=== PATIENT | male | born 1975 | race Two or more races ===

== ENCOUNTER 2018-05-20 08:15 | Day surgery (SDC) | payer OTHER ==
[2018-05-20] VITALS (7 sets, daily range): BP systolic 127–148; BP diastolic 80–93
[~2018-05-20] VITALS: Ht 198.1 cm; Wt 127.0 kg
--- NOTE | 2018-05-20 06:55 | Anethesia Preoperative Eval ---
Anesthesia Pre-op PMH/ROS General Date of Evaluation: May 20, 2018 Time of Evaluation: 06:53 Anesthesiologist: randall ASA Score: ASA 2 Mallampati Score Class I : Soft palate, uvula, fauces, pillars visible Class II: Soft palate, uvula, fauces visible Class III: Soft palate, base of uvula visible Class IV: Only hard plate visible Mallampati Classification: Class II Surgeon: perry Diagnosis: abdominal pain Surgical Procedure: egd/colonoscopy Anesthesia History: none Social History: current smoker Family History: no anesthesia problems Allergies: Coded Allergies: No Known Allergies (Unverified , 05/19/18) Medications: see eMAR Patient NPO?: Yes Past Medical History Gastrointestinal/Genitourinary: Reports: GERD HEENT: Reports: other - decreased visual acuity Anesthesia Pre-op Phys. Exam Physician Exam Last Vital Signs Date Time Temp Pulse Resp B/P (MAP) Pulse Ox O2 Delivery O2 Flow Rate FiO2 05/20/18 09:31 98.5 66 20 148/93 98 Room Air Constitutional: NAD Neurologic: CN 2-12 intact Cardiovascular: RRR Respiratory: CTA Gastrointestinal: S/NT/ND Airway Exam Mallampati Score: Class II MO: full Neck: flexible TMD: 2fb ROM: full Anesthesia Pre-op A/P Risk Assessment & Plan Assessment: asa2 Plan: mac Status Change Before Surgery: No Pre-Antibiotics Drug: Tarah Winters MD May 20, 2018 06:55
[~2018-05-20 08:15] MED LIST: Atropine Inj 1mg/10ml Syr IV PRN; DiphenhydrAMINE 50mg/ml Inj IVP PRN; IBUPROFEN200 MG ORAL; LR 1000ml 1,000 ML IVLG SCH; Midazolam 2mg/2ml Inj IVP PRN; NUTRITIONAL DR420 GM PO; fentaNYL 100 mcg/2 mL IV PRN
[2018-05-20] MEDS ORDERED: LR 1000ml ONE (09:30)
[2018-05-20] MEDS ORDERED: Propofol 200mg/20ml IV ONE (09:30)
[2018-05-20] MEDS ORDERED: Lidocaine 1% MPF 10mg/ml 5ml ONE (09:30)
--- NOTE | 2018-05-20 09:31 | Short Stay Surgery H&P ---
History of Present Illness History of Present Illness Chief Complaint Abdominal pains/GERDs/rectal bleeding HPI Jin Burdick is a 42 year old male who was admitted on for Abdominal Pain/GERDS/rectal bleeding, Patient History Allergies: Coded Allergies: No Known Allergies (Unverified , 05/19/18) PAST MEDICAL HISTORY: (1) H/O arthroscopic knee surgery Medication History Scheduled Ibuprofen (Ibuprofen*), 800 MG ORAL Q8H, (Reported) Protein Supplement (Nutritional Drink Mix), 420 GM PO DAILY, (Reported) Review of Systems Cardiovascular: Reports: no symptoms Respiratory: Reports: no symptoms Skeletal: Reports: trauma Gastrointestinal: Reports: gastro esophageal reflux disease Genitourinary: Reports: no symptoms Neurologic: Reports: no symptoms Endocrine: Reports: no symptoms Hematologic: Reports: no symptoms Physical Exam Skin: normal HENT: normal Heart: normal Lungs: normal Abdomen: abnormal Extremities: normal Genitourinary: normal Plan Plan of Care Upper and lower GI endoscopies. Preop Interventions None. Attestation Are the patient's medical conditions optimized for surgery? Attestation Response: yes José Miguel Ocaiso MD May 20, 2018 09:30
--- NOTE | 2018-05-20 09:32 | Pre-Procedure Note/Attestation ---
Pre-Procedure Note/Attestation Complete Prior to Procedure Planned Procedure: left Procedure Narrative: Examination of the upper and the lower GI tract via endoscopy Indications for Procedure Pre-Operative Diagnosis: R/O Gastritis/peptic ulcer/hemorrhoids/colitis/tumor in colon Attestation I attest that I discussed the nature of the procedure; its benefits; risks and complications; and alternatives (and the risks and benefits of such alternatives ), prior to the procedure, with the patient (or the patient's legal contact center representative). I attest that, if there was a reasonable possibility of needing a blood transfusion, the patient (or the patient's legal contact center representative) was given the [place] [facility] [employer] [facility] standardized written summary, pursuant to the [place] Blood Safety Act ([place] Health and Safety Code # 1645, as amended). I attest that I re-evaluated the patient just prior to the surgery and that there has been no change in the patient's H&P, except as documented below: José Miguel Ocasio MD May 20, 2018 09:32
[2018-05-20] MEDS ORDERED: CYCLOBENZAPRINE10 MG ORAL (09:36)
--- NOTE | 2018-05-20 10:10 | Endoscopy Procedure Note ---
Endoscopy Procedure Note General Indication for Procedure: Abdominal pains/GERDs/rectal bleeding Procedures Performed: EGD - Completely normal Upper GI endoscopy. Biopsy taken per random from gastric body., colonoscopy - Minimal internal hemorrhoids/non friable, otherwise completely normal total colonoscopy upto the base of the cecum. Pt Tolerated Procedure Well: Yes Estimated Blood Loss: none Anesthesia Anesthesiologist: Dr. Sanchez Anesthesia: moderate sedation Medications Medication Given: see anesthesia record Inserted Devices Implant(s) used?: No Quality Quality of Bowel Preparation: Excellent Did scope reach the cecum?: Yes Was there any complications?: No GI Core Measures 50 yrs or older w/o bx or poly: No 10yrs. F/U not recommended: Yes 10 yrs. F/U needed: Yes 18 years or older w/prev. colo: No Med reason:<3 yrs.: System Reason:<3 yrs.: José Miguel Ocasio MD May 20, 2018 10:10
--- NOTE | 2018-05-20 10:11 | Discharge Instructions ---
Discharge Instructions Discharge Instructions Follow up with: See the doctor after 2 weeks in the office For Congestive Heart Failure Reminder Report to your physician any weight gain of 5 pounds or more in one week. José Miguel Ocasio MD May 20, 2018 10:11
--- NOTE | 2018-05-20 10:52 | Immediate Post-Op Evaluation ---
Immediate Post-Op Evalulation Immediate Post-Op Evalulation Procedure: egd/colonoscopy/bx Date of Evaluation: May 20, 2018 Time of Evaluation: 10:31 IV Fluids: 400ml lr Blood Products: none Estimated Blood Loss: negligible Blood Pressure Systolic: 145 Blood Pressure Diastolic: 88 Pulse Rate: 88 Respiratory Rate: 18 O2 Sat by Pulse Oximetry: 97 Temperature (Fahrenheit): 97.3 Pain Score (1-10): 0 Nausea: No Vomiting: No Complications none Patient Status: awake, reacts, patent Hydration Status: adequate Drug: Tarah Winters MD May 20, 2018 10:52
--- NOTE | 2018-05-20 10:53 | 48 Hour Post Anesthesia Eval ---
Post Anesthesia Evaluation Procedure: egd/colonoscopy/bx Date of Evaluation: May 20, 2018 Time of Evaluation: 10:33 Blood Pressure Systolic: 137 0: 88 Pulse Rate: 73 Respiratory Rate: 18 Temperature (Fahrenheit): 97.3 O2 Sat by Pulse Oximetry: 98 Airway: patent Nausea: No Vomiting: No Pain Intensity: 0 Hydration Status: adequate Cardiopulmonary Status: stable Mental Status/LOC: patient returned to baseline Post-Anesthesia Complications: none Follow-up care needed: N/A Tarah Rizo MD May 20, 2018 10:53
--- NOTE | 2018-05-20 15:30 | Pre-op HX & Phy Repo 2 SIG ---
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 He also reports that his pain radiates towards the chest area, which is very mild. He reported that he had never been in the past received any acid suppressor such as proton pump inhibitor or H2 blockers. At this time, the applicant reports that he has mild discomfort over his upper part of the stomach with minimal amount of heartburn which is basically controlled with a diet at this time. He also reported to me that during his work, he has gradually gained approximately 30 pounds. The other problem that he has been reporting is that he has been experiencing the occasional rectal bleeding. The diagnosis of which still remains unclear and therefore the patient has been referred to us for undergoing upper and lower GI endoscopic examination in terms of finding what the causes of his gastrointestinal complaints are about. 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 He reported to me that he never received any endoscopic procedure in the gastrointestinal tract, however. PAST MEDICAL HISTORY: Basically nonsignificant. He denies having any hypertension, high cholesterol, arthritis, diabetes, etc. PAST SURGICAL HISTORY: He has received arthroscopic procedure on knees related to his work accident, etc. ALLERGIES: None significant. FAMILY HISTORY: None significant. There is no family . HABITS: The applicant denies drinking alcohol; however, for the past 5 years, he has been smoking cigarettes. MEDICATIONS: Currently ibuprofen and [place]. REVIEW OF SYSTEMS: Basically is nonsignificant as he denies any headaches or dizziness, history of fall or syncope. No history of chest pain. No history of cough, etc. No urinary problems. PHYSICAL EXAMINATION: GENERAL: At this time reveals alert and well-oriented gentleman, does not seem to be in acute distress. VITAL SIGNS: Stable. HEENT: Normocephalic. Pupils equal and responsive to light and accommodation. No visible jaundice. Buccal cavity, tongue midline, well hydrated. No ulcers. NECK: Supple. No JVD or thyromegaly. CHEST: Clear to auscultation and percussion. No rales or rhonchi. HEART: S1 and S2 normal. Regular rhythm. No gallops or murmur. ABDOMEN: Significantly obese, but there is minimal tenderness over the upper part of the abdomen but is very nonspecific and not significant. There is no hepatosplenomegaly. No palpable mass noted. EXTREMITIES: No pretibial edema, cyanosis, or clubbing. CENTRAL NERVOUS SYSTEM: Grossly normal. PRELIMINARY PREOPERATIVE DIAGNOSES: 1. Epigastric pain with gastroesophageal acid reflux, rule out NSAID-induced gastropathy, rule out peptic ulcer disease, gastritis, duodenitis, duodenal ulcer, gastric ulcers etc. 2. History of rectal bleeding of unknown cause, rule out hemorrhoids versus colitis, polyps, tumors etc. 3. History of bodily injury, work related. 4. Obesity. RECOMMENDATIONS: The applicant seems to be stable at this time to undergo the procedure of upper and lower GI endoscopy that he has been scheduled for. He understands the risks and benefits and will sign the consent. Said Melissa Ocasio DR: Tommie JOB#: [id number] CC:
--- NOTE | 2018-05-20 15:45 | Operative Note - Dictated ---
DATE OF OPERATION: 05/20/2018 SURGEON: José Miguel Ocasio M.D. PROCEDURE: Total colonoscopy. PREOPERATIVE DIAGNOSIS: History of rectal bleeding, rule out hemorrhoids versus colitis, tumors, polyps, etc. POSTOPERATIVE DIAGNOSIS: Minimal internal hemorrhoids, which was non-friable. Otherwise, complete normal total colonoscopy up to the base of the cecum as examined. MEDICATION USED: Per Dr. Sanchez, anesthesiologist. INSTRUMENT: GIF Olympus video colonoscope. DESCRIPTION OF PROCEDURE: The patient after arriving an endoscopy unit, was told about risks and benefits of the procedure, which he accepted and signed informed consent. At this point, he was put in the left lateral decubitus position. After adequate IV sedation, the scope was gently passed through the anal area and careful examination of this section revealed very minimal internal hemorrhoids, which were not important and not friable or bleeding. A retroflexion maneuver, which was applied revealed the same findings. The rectum itself was completely within normal limits in terms of findings. At this time, the scope was passed through the rectosigmoid angle, introduced into the left descending colon all the way to the splenic flexure, transverse colon, hepatic flexure, and finally was guided all the way to the right ascending colon to the base of the cecum. All these areas were completely within normal limits and no pathology such as tumors, polyps, inflammatory process, ulcers, etc. was found. The colon cleanup was adequate and excellent and at this point within 5 to 6 minutes, the scope was gradually pulled out and re-evaluation of the colon did not reveal any other abnormalities. At this point, the procedure was terminated. The patient tolerated the procedure well and left the endoscopy room in a good condition. José Miguel Ocasio M.D. DR: TERE JOB#: [id number] CC:
--- NOTE | 2018-05-20 15:45 | Procedure Note ---
DATE OF PROCEDURE: 05/20/2018 PROCEDURE: Upper GI endoscopy, esophagogastroduodenoscopy with biopsy. SURGEON: José Miguel Ocasio M.D. PREOPERATIVE DIAGNOSES: 1. Abdominal pain. 2. History of acid reflux, rule out peptic ulcer disease, gastritis, NSAID-induced gastropathy. POSTOPERATIVE DIAGNOSIS: Completely normal upper GI endoscopy. Biopsy was taken per random from gastric body. MEDICATION USED: Per Dr. Sanchez, anesthesiologist. INSTRUMENT: GIF Olympus upper GI video endoscope. DESCRIPTION OF PROCEDURE: The patient after arriving in the endoscopy unit, was told about risks and benefits of the procedure, which he accepted and signed the informed consent. At this point, he was put in the left lateral decubitus position and after adequate IV sedation, the scope was gently passed through the cricopharyngeal area, was lodged into the upper esophagus and gradually advanced towards gastroesophageal junction. The entire length of the esophagus looked normal and there was no any evidence of inflammatory process, ulceration, stricture, etc. GE junction also looked normal. No evidence of hiatal hernia or Bland's. At this time, the scope was advanced into the stomach. Gastric cavity was distended revealing normal gastric fold. The examination was done from the fundus and gastroesophageal junction all the way to the pyloric channel which revealed basically normal findings. No evidence of inflammatory process, tumors, bleeding site etc. Retroflexion maneuver was also applied by the scope and revealed no problem. No pathology in the gastroesophageal junction on this view. At this point, one random biopsy from gastric body was obtained. Subsequently, the scope was passed through the pylorus, which looked completely normal in the first and second portion of duodenum. Finally, the scope was pulled out and the procedure was terminated. The patient tolerated the procedure well. José Miguel Ocasio M.D. DR: Tommie JOB#: [id number] CC:
== END 2018-05-20 11:30 | disposition home or self-care (01) ==
LOC: SDS 08:15
DX: K29.50 Unspecified chronic gastritis without bleeding (principal); B96.81 Helicobacter pylori [H. pylori] as the cause of diseases classified elsewhere; K62.5 Hemorrhage of anus and rectum; K64.8 Other hemorrhoids; E66.9 Obesity, unspecified; F17.200 Nicotine dependence, unspecified, uncomplicated
CPT/HCPCS: 43239; 45378; J2704; 94003; 94150